=== PATIENT | male | born 1960 | race African-American/Black ===

== ENCOUNTER 2019-01-26 11:56 | Emergency (ER) | payer MEDICARE, MEDICAID ==
[~2019-01-26] VITALS: Ht 182.9 cm; Wt 99.0 kg
[2019-01-26] MEDS ORDERED: LIDOCAINE HCL/PF 1% 10 MG/ML 5ML VIAL IJ ONE (14:45)
[2019-01-26] MEDS ORDERED: BACITRACIN ZINC OINT UDPKT TOP ONE (14:45)
[2019-01-26] MEDS ORDERED: TETANUS, DIPHTHERIA, PERTUSSIS VAC/PF 0.5ML (>7YR OLD) IM ONE (14:45)
[2019-01-26] MEDS ORDERED: IBUPROFEN 800MG TABLET PO ONE (14:45)
[2019-01-26] MEDS ORDERED: HYDROCODONE/ACETAMINOPHEN 5/325MG TABLET PO ONE (15:30)
[2019-01-26 17:34] VITALS: BP 171/92
== END 2019-01-26 17:25 | disposition home or self-care (01) ==
LOC: ER 11:56
DX: S61.213A Laceration without foreign body of left middle finger without damage to nail, initial encounter (principal); W29.8XXA Contact with other powered hand tools and household machinery, initial encounter; Y93.89 Activity, other specified; Y92.89 Other specified places as the place of occurrence of the external cause; Z23 Encounter for immunization; I10 Essential (primary) hypertension; F17.210 Nicotine dependence, cigarettes, uncomplicated
CPT/HCPCS: 12002; 73140; 90471; 90715; 99283; J3490

== ENCOUNTER 2019-01-28 07:54 | Emergency (ER) | payer MEDICARE, MEDICAID ==
[~2019-01-28] VITALS: Ht 182.9 cm; Wt 100.0 kg
[2019-01-28 08:45] VITALS: BP 153/100
== END 2019-01-28 08:48 | disposition home or self-care (01) ==
LOC: ER 07:54
DX: S61.213D Laceration without foreign body of left middle finger without damage to nail, subsequent encounter (principal); I10 Essential (primary) hypertension; F17.200 Nicotine dependence, unspecified, uncomplicated; X58.XXXD Exposure to other specified factors, subsequent encounter
CPT/HCPCS: 99283

== ENCOUNTER 2019-02-04 08:03 | Emergency (ER) | payer MEDICARE, MEDICAID ==
[~2019-02-04] VITALS: Ht 182.9 cm; Wt 100.0 kg
[2019-02-04 08:24] VITALS: BP 158/113
[2019-02-04] MEDS ORDERED: BACITRACIN ZINC OINT UDPKT TOP ONE (09:45)
== END 2019-02-04 10:01 | disposition home or self-care (01) ==
LOC: ER 08:03
DX: S61.213D Laceration without foreign body of left middle finger without damage to nail, subsequent encounter (principal); F17.200 Nicotine dependence, unspecified, uncomplicated; I10 Essential (primary) hypertension; X58.XXXD Exposure to other specified factors, subsequent encounter
CPT/HCPCS: 99282

== ENCOUNTER 2019-02-08 08:34 | Emergency (ER) | payer MEDICARE, MEDICAID ==
[~2019-02-08] VITALS: Ht 182.9 cm; Wt 93.0 kg
[2019-02-08 08:42] VITALS: BP 165/101
[2019-02-08] MEDS ORDERED: BACITRACIN ZINC OINT UDPKT TOP ONE (09:30)
== END 2019-02-08 10:18 | disposition home or self-care (01) ==
LOC: ER 08:34
DX: S61.215D Laceration without foreign body of left ring finger without damage to nail, subsequent encounter (principal); I10 Essential (primary) hypertension; X58.XXXD Exposure to other specified factors, subsequent encounter
CPT/HCPCS: 99283

== ENCOUNTER 2023-07-06 10:34 | Emergency (ER) | payer MEDICARE, MEDICAID ==
[~2023-07-06] VITALS: Ht 182.9 cm; Wt 82.0 kg
[2023-07-06 10:36] VITALS: O2SAT 100
[2023-07-06 11:07] LABS: BASOPHILS % 1.4 % (0.0-2.0); EOSINOPHILS % 3.9 % (0.0-5.0); HEMOGLOBIN. 14.2 g/dL (14.0-18.0); LYMPHOCYTES % 19.3 % (20.0-50.0); MEAN CORPUSCULAR HGB CONC 33.1 g/dL (31.0-37.0); MEAN CORPUSCULAR VOLUME 84.7 fL (80.0-94.0); MONOCYTES % 11.4 % (2.0-8.0); PLATELET 256 x1000/uL (130-400); RED BLOOD CELL COUNT 5.07 mill/uL (4.7-6.1); RED CELL DISTRIBUTION WIDTH 14.8 % (11.6-14.6); WHITE BLOOD COUNT 4.7 x1000/uL (4.5-11.0)
[2023-07-06 11:24] LABS: CHLORIDE 107 mEq/L (98-107); INDEX HEMOLYSI 1 (1-3); INDEX ICTERIC 1 (1-4); INDEX LIPEMIC 1 (1-3); POTASSIUM 3.9 mEq/L (3.5-5.1); PROTHROMBIN TIME 10.8 sec (9.6-11.0); SODIUM 136 mEq/L (136-145)
[2023-07-06 11:34] LABS: ALANINE AMINOTRANSFERASE 46 IU/L (13-61); ALBUMIN 3.9 g/dL (3.4-5.0); ASPARTATE AMINOTRANSFERASE 50 IU/L (15-37); CALCIUM 8.7 mg/dL (8.5-10.1); CARBON DIOXIDE 25 mEq/L (21-32); CREATININE 0.9 mg/dL (0.6-1.3); GLUCOSE 78 mg/dL (70-105); PROTEIN TOTAL 7.7 g/dL (6.0-8.3); TROPONIN I HIGH SENSITIVITY 14 ng/L (<78); UREA NITROGEN BLOOD 10 mg/dL (7-21)
[2023-07-06] MEDS ORDERED: HYDRALAZINE 20MG/ML VIAL IV NR (16:45)
[2023-07-06 22:02] VITALS: BP 149/91; PULSE 80; RESP 16; TEMP 97.8
[2023-07-06] MEDS ORDERED: HYDRALAZINE 20MG/ML VIAL IV ONE (22:15)
== END 2023-07-06 23:02 | disposition short-term general hospital (02) ==
LOC: ER 10:34 → EDBEDREQTM 13:58 → EDBEDREQ 13:58 → ER 23:02
DX: R55 Syncope and collapse (principal); M25.561 Pain in right knee; M25.562 Pain in left knee; I10 Essential (primary) hypertension; W18.39XA Other fall on same level, initial encounter; Y93.89 Activity, other specified; Y92.89 Other specified places as the place of occurrence of the external cause; Y99.8 Other external cause status
CPT/HCPCS: 99285; 70450; 96374; 80053; 85025; 85610; 84484; 36415; 73560; 72125; J0360

== ENCOUNTER 2024-06-28 15:00 | Emergency (ER) | payer MEDICARE, MEDICAID ==
[~2024-06-28] VITALS: Ht 182.9 cm; Wt 127.0 kg
[~2024-06-28 15:00] MED LIST: HYDR-4009 MT; LOSA50TA41 PO; OMEP10CA5 PO
[2024-06-28 15:01] VITALS: O2SAT 95
[2024-06-28 15:25] VITALS: TEMP 36.66960
[2024-06-28 15:59] LABS: DIFFERENTIAL COMMENT 0; EOSINOPHILS % 3.2 % (0.0-5.0); HEMOGLOBIN. 11.1 g/dL (14.0-18.0); MEAN CORPUSCULAR HEMOGLOBIN 26.1 pg (28.0-32.0); MEAN CORPUSCULAR HGB CONC 32.8 g/dL (31.0-37.0); MEAN CORPUSCULAR VOLUME 79.6 fL (80.0-94.0); MEAN PLATELET VOLUME 8.8 fl (7.4-10.4); MONOCYTES % 10.2 % (2.0-8.0); NEUTROPHILS % 62.6 % (40.0-76.0); PLATELET 326 x1000/uL (130-400); RED BLOOD CELL COUNT 4.27 mill/uL (4.7-6.1); RED CELL DISTRIBUTION WIDTH 15.6 % (11.6-14.6); WHITE BLOOD COUNT 6.3 x1000/uL (4.5-11.0)
[2024-06-28 16:10] LABS: CHLORIDE 107 mEq/L (98-107); POTASSIUM 3.9 mEq/L (3.5-5.1); SODIUM 140 mEq/L (136-145)
[2024-06-28 16:11] LABS: CALCIUM 9.2 mg/dL (8.7-10.4); CARBON DIOXIDE 29 mEq/L (21-32)
[2024-06-28 16:16] LABS: CREATININE 1.2 mg/dL (0.6-1.3); GLUCOSE 93 mg/dL (70-105); UREA NITROGEN BLOOD 14 mg/dL (9-23)
[2024-06-28 16:18] LABS: TROPONIN I HIGH SENSITIVITY 15 ng/L (3.0-53)
[2024-06-28 18:39] VITALS: BP 129/90; PULSE 83; RESP 20; O2SAT 100
== END 2024-06-28 20:21 | disposition home or self-care (01) ==
LOC: ER 15:00 → CANBEDREQ 19:48 → ER 20:21
DX: M79.89 Other specified soft tissue disorders (principal); I69.30 Unspecified sequelae of cerebral infarction; I10 Essential (primary) hypertension; F03.90 Unspecified dementia, unspecified severity, without behavioral disturbance, psychotic disturbance, mood disturbance, and anxiety
CPT/HCPCS: 36415; 71045; 80048; 83880; 84484; 85025; 93005; 93970; 99285